=== PATIENT | female | born 1990 | race Caucasian/White ===

== ENCOUNTER 2016-06-12 20:57 | Emergency (ER) | payer OTHER ==
[~2016-06-12] VITALS: Ht 162.5 cm; Wt 97.1 kg
[~2016-06-12 20:57] MED LIST: AMOXICILLIN500 M2 PO; CIPRO500 MG PO; CLINDAMYCIN150 MG PO; FLONASE ALLERG9.9 ML NS; HYDROCODONE BIT1 T11 PO; KEFLEX500 MG PO; MACRODANTIN100 M1 PO; MOTRIN800 MG PO; NAPROSYN500 MG PO; NKHM; NORCO 325 MG-51 TAB PO; PEN-VEE K500 MG PO; PENICILLIN VK500 MG PO; SILVADENE1% TP; TOPCARE OMEPRAZ20 MG PO; VENTOLIN H0.09 MG/AC INH
[2016-06-12 21:09] VITALS: BP 150/98
[2016-06-12 21:41] LABS: BASO # 0.1 10*3/uL (0.0-0.1); BASO % 0.4 % (0.0-1.0); EOS # 0.3 10*3/uL (0.0-0.4); EOS % 2.4 % (1.0-4.0); HEMATOCRIT 40.5 % (37.0-47.0); HEMOGLOBIN 13.4 g/dl (12.0-16.0); LYMPH # 2.5 10*3/uL (1.3-4.4); LYMPH % 22.3 % (27.0-41.0); MEAN CELL VOLUME 88.4 fl (81.0-99.0); MEAN CORPUSCULAR HGB 29.3 pg (27.0-31.0); MEAN CORPUSCULAR HGB CONC 33.1 g/dl (33.0-37.0); MEAN PLATELET VOLUME 10.8 fl (9.6-12.3); MONO # 0.8 10*3/uL (0.1-1.0); MONO % 7.3 % (3.0-9.0); NEUT # 7.7 10*3/uL (2.3-7.9); NEUT % 67.3 % (47.0-73.0); PLATELET COUNT AUTOMATED 252 10*3/uL (130-400); RED BLOOD COUNT 4.58 10*6/uL (4.10-5.10); RED CELL DISTRI WIDTH 12.5 % (0-14.5); WHITE BLOOD COUNT 11.4 10*3/uL (4.8-10.8)
[2016-06-12 21:58] LABS: BILIRUBIN NEGATIVE (NEGATIVE); BLOOD NEGATIVE (NEGATIVE); CLARITY SL CLOUDY (CLEAR); COLOR YELLOW (YELLOW); GLUCOSE NEGATIVE (NEGATIVE); KETONE NEGATIVE (NEGATIVE); LEUKO ESTERASE NEGATIVE (NEGATIVE); NITRITE NEGATIVE (NEGATIVE); PROTEIN NEGATIVE (NEGATIVE); UROBILINOGEN 0.2 E.U./dl (0.2-1.0)
[2016-06-12 21:59] LABS: ALBUMIN 3.3 gm/dl (3.1-4.5); ALKALINE PHOSPHATASE 95 U/L (45-117); BILIRUBIN, TOTAL 0.2 mg/dl (0.2-1.0); BUN 5 mg/dl (7-24); C-REACTIVE PROTEIN 4.07 MG/DL (0-0.3); CARBON DIOXIDE 29 mmol/L (21-32); CHLORIDE 106 mmol/L (98-107); EST GLOM FILT AFRICAN AMERICAN > 60 ml/min; GLUCOSE 96 mg/dL (65-99); POTASSIUM 4.1 mmol/L (3.5-5.1); SGOT/AST 17 IU/L (3-35); SGPT/ALT 18 U/L (12-78); SODIUM 142 mmol/L (136-145); TOTAL PROTEIN 7.9 gm/dL (6.4-8.2)
[2016-06-12 22:01] LABS: B-hCG (QUALITATIVE) NEGATIVE (NEGATIVE)
[2016-06-12 22:05] LABS: BACTERIA 1+; RBC 0-2 rbc/hpf (0-2); URINE REFLEX COMMENT NO (NO); WBC 0-2 wbc/hpf (0-5)
[2016-06-13] MEDS ORDERED: ZOFRAN ODT4 MG SL (01:19)
[2016-06-13] MEDS ORDERED: BENTYL10 MG PO (01:19)
[2016-06-13] MEDS ORDERED: HYDROCODONE BIT1 T11 PO (01:19)
== END 2016-06-13 01:41 | disposition home or self-care (01) ==
LOC: ED 20:57
PROVIDERS: Emergency Medicine Emergency Medical Services
DX: K80.80 Other cholelithiasis without obstruction (principal); K80.50 Calculus of bile duct without cholangitis or cholecystitis without obstruction; K21.9 Gastro-esophageal reflux disease without esophagitis; Z88.5 Allergy status to narcotic agent; Z79.899 Other long term (current) drug therapy

== ENCOUNTER → 2016-06-21 | Day surgery (SDC) | payer OTHER ==
[2016-06-19 10:58] LABS: BILIRUBIN NEGATIVE (NEGATIVE); BLOOD NEGATIVE (NEGATIVE); CLARITY SL CLOUDY (CLEAR); COLOR YELLOW (YELLOW); GLUCOSE NEGATIVE (NEGATIVE); KETONE NEGATIVE (NEGATIVE); LEUKO ESTERASE 1+ (NEGATIVE); NITRITE NEGATIVE (NEGATIVE); PH 5.5 (5.0-9.0); PROTEIN NEGATIVE (NEGATIVE); UROBILINOGEN 0.2 E.U./dl (0.2-1.0)
[2016-06-19 11:01] LABS: BASO # 0.1 10*3/uL (0.0-0.1); BASO % 0.6 % (0.0-1.0); EOS # 0.2 10*3/uL (0.0-0.4); EOS % 2.3 % (1.0-4.0); HEMATOCRIT 43.7 % (37.0-47.0); HEMOGLOBIN 14.5 g/dl (12.0-16.0); LYMPH # 2.3 10*3/uL (1.3-4.4); LYMPH % 21.5 % (27.0-41.0); MEAN CELL VOLUME 88.5 fl (81.0-99.0); MEAN CORPUSCULAR HGB 29.4 pg (27.0-31.0); MEAN CORPUSCULAR HGB CONC 33.2 g/dl (33.0-37.0); MEAN PLATELET VOLUME 10.8 fl (9.6-12.3); MONO # 0.6 10*3/uL (0.1-1.0); MONO % 5.5 % (3.0-9.0); NEUT # 7.3 10*3/uL (2.3-7.9); NEUT % 69.8 % (47.0-73.0); PLATELET COUNT AUTOMATED 280 10*3/uL (130-400); RED BLOOD COUNT 4.94 10*6/uL (4.10-5.10); RED CELL DISTRI WIDTH 12.7 % (0-14.5); WHITE BLOOD COUNT 10.5 10*3/uL (4.8-10.8)
[2016-06-19 11:03] LABS: BACTERIA TRACE
[2016-06-19 11:30] LABS: ALBUMIN 3.5 gm/dl (3.1-4.5); ALKALINE PHOSPHATASE 92 U/L (45-117); BILIRUBIN, DIRECT < 0.1 mg/dL (0.0-0.2); BILIRUBIN, TOTAL 0.3 mg/dl (0.2-1.0); BUN 6 mg/dl (7-24); CARBON DIOXIDE 24 mmol/L (21-32); CHLORIDE 107 mmol/L (98-107); EST GLOM FILT AFRICAN AMERICAN > 60 ml/min; GLUCOSE 89 mg/dL (65-99); POTASSIUM 4.3 mmol/L (3.5-5.1); SGOT/AST 19 IU/L (3-35); SGPT/ALT 23 U/L (12-78); SODIUM 141 mmol/L (136-145); TOTAL PROTEIN 8.5 gm/dL (6.4-8.2)
[2016-06-19 11:35] LABS: PROTHROMBIN TIME 10.5 SECONDS (9.0-12.4)
[~2016-06-21] VITALS: Ht 162.5 cm; Wt 97.5 kg
[2016-06-21] VITALS (8 sets, daily range): BP systolic 117–146; BP diastolic 72–89
[~2016-06-21] MED LIST changes: +BENTYL10 MG PO; +PERCOCET 325 MG1 TA2 PO; +ZOFRAN ODT4 MG SL
--- NOTE | ~2016-06-21 | O ---
[place], [place] OPERATIVE NOTE NAME: ANTIONE LIZARRAGA [facility] #: [id number] UNIT #: [id number] ROOM: DOCTOR: KEL AC MD BIRTHDATE: [birth year] DOS: 06/21/2016 PREOPERATIVE DIAGNOSIS: Gallstones. POSTOPERATIVE DIAGNOSIS: Chronic calculous cholecystitis. PROCEDURE: Laparoscopic cholecystectomy. SURGEON: Kel Ac MD SENIOR JAVA UI DEVELOPER: PGY1. ANESTHESIA: GET. INDICATIONS: This is a 26-year-old lady with a history of right upper quadrant pain and an ultrasound that showed sludge and gallstones. It was decided to take the patient to the operating room for a laparoscopic possible open cholecystectomy. The procedure and its complications explained to the patient in detail preoperatively. Complications that were discussed included, but were not limited to, bleeding, infection, hematoma/seroma/abscess formation, prolonged postoperative pain, damage to underlying vital structures, inadvertent injury to the common bile duct, biloma formation and incisional hernia formation. She agreed to proceed. DESCRIPTION OF PROCEDURE: After identifying the patient, the patient was brought to the operating suite and laid in the supine position. After induction of general anesthesia, the parts were painted and draped in the usual sterile fashion. A time-out procedure was called. An incision was made below the umbilicus in a transverse fashion. The skin and the subcutaneous tissue were incised. The fascia was incised vertically and 2 stay sutures with 0 Vicryl were taken on either side. The peritoneum was opened and a Charla port was introduced and a pneumoperitoneum was created. Under direct vision, an epigastric incision of 10 mm and two 5 mm incisions were made in the right upper quadrant and appropriate size ports were introduced. The gallbladder was retracted superiorly and laterally. Adhesions between the omentum and the gallbladder were taken down with the help of blunt dissection. Thereafter, the cystic duct and the cystic artery were each identified until the critical view of safety was obtained and the triangle of Calot was clearly delineated. Thereafter, the cystic duct and the cystic artery were each clipped 3 times and cut between the first and the second clip. The gallbladder was then removed from the bed of the gallbladder and placed in an EndoCatch bag and sent for histopathological diagnosis. Thereafter, the liver bed was inspected for bleeding, there was no bleeding seen. At this point, the right upper quadrant and the epigastric ports were removed and there was no bleeding seen. The umbilical port was also removed. The stay sutures were tied together and an additional stitch was taken to close the fascia. Thereafter, the edges of the skin were infiltrated with 1% plain lidocaine and then were approximated with the help of 4-0 Vicryl in a subcuticular running fashion. Dressings were given to all the 4 incisions. The patient tolerated the procedure well. She was extubated uneventfully and taken to the recovery room in stable fashion. There [place], [place] OPERATIVE NOTE NAME: ANTIONE LZIARRAGA UNIT #: [id number] ROOM: DOCTOR: KEL AC MD BIRTHDATE: [address] Kel Ac, the attending surgeon, was present throughout the operating case. Kel Ac MD CM:OPRECORD:OPERATIVE NOTE [id number] KEL AC MD 06/21/16 1128 interface
== END | disposition home or self-care (01) ==
LOC: SDC 06-19 09:30
PROVIDERS: Surgery
DX: K80.12 Calculus of gallbladder with acute and chronic cholecystitis without obstruction (principal); K21.9 Gastro-esophageal reflux disease without esophagitis; F17.210 Nicotine dependence, cigarettes, uncomplicated; Z82.49 Family history of ischemic heart disease and other diseases of the circulatory system; Z83.3 Family history of diabetes mellitus; Z80.0 Family history of malignant neoplasm of digestive organs

== ENCOUNTER 2016-11-06 19:52 | Emergency (ER) | payer OTHER ==
[~2016-11-06] VITALS: Ht 167.6 cm; Wt 70.3 kg
[2016-11-06 20:35] VITALS: BP 142/90
[2016-11-06] MEDS ORDERED: ZITHROMAX250 MG PO (21:39)
== END 2016-11-06 22:14 | disposition home or self-care (01) ==
LOC: ED 19:52
DX: J06.9 Acute upper respiratory infection, unspecified (principal); B97.89 Other viral agents as the cause of diseases classified elsewhere; K21.9 Gastro-esophageal reflux disease without esophagitis; Z88.6 Allergy status to analgesic agent

== ENCOUNTER 2017-03-22 11:18 | Emergency (ER) | payer OTHER ==
[~2017-03-22] VITALS: Ht 162.5 cm; Wt 91.2 kg
[~2017-03-22 11:18] MED LIST changes: +ZITHROMAX250 MG PO
[2017-03-22 11:23] VITALS: BP 108/68
== END 2017-03-22 11:57 | disposition home or self-care (01) ==
LOC: ED 11:18
DX: S60.442A External constriction of right middle finger, initial encounter (principal); K21.9 Gastro-esophageal reflux disease without esophagitis; F17.200 Nicotine dependence, unspecified, uncomplicated; Z90.49 Acquired absence of other specified parts of digestive tract; Z79.899 Other long term (current) drug therapy; Z88.5 Allergy status to narcotic agent; X58.XXXA Exposure to other specified factors, initial encounter; Y93.89 Activity, other specified; Y92.89 Other specified places as the place of occurrence of the external cause; Y99.9 Unspecified external cause status

== ENCOUNTER 2018-01-14 14:56 | Emergency (ER) | payer OTHER ==
[~2018-01-14] VITALS: Ht 162.5 cm; Wt 93.4 kg
[2018-01-14 14:58] VITALS: BP 129/81
[2018-01-14] MEDS ORDERED: CEPHALEXIN500 M1 PO (15:48)
== END 2018-01-14 15:59 | disposition home or self-care (01) ==
LOC: ED 14:56
DX: T24.212A Burn of second degree of left thigh, initial encounter (principal); Z90.49 Acquired absence of other specified parts of digestive tract; Z88.5 Allergy status to narcotic agent; Z79.2 Long term (current) use of antibiotics; X19.XXXA Contact with other heat and hot substances, initial encounter; Y93.89 Activity, other specified; Y92.69 Other specified industrial and construction area as the place of occurrence of the external cause; Y99.8 Other external cause status

== ENCOUNTER → 2019-09-24 | Outpatient (CLI) | payer OTHER ==
[~2019-09-24] MED LIST changes: +CEPHALEXIN500 M1 PO
== END | disposition home or self-care (01) ==
LOC: US 15:51
DX: Z34.91 Encounter for supervision of normal pregnancy, unspecified, first trimester (principal); Z3A.09 9 weeks gestation of pregnancy

== ENCOUNTER → 2020-04-15 | Outpatient (CLI) | payer OTHER | END | disposition home or self-care (01) | LOC: COVID19 15:05 | PROVIDERS: ATTEND Obstetrics & Gynecology | DX: Z34.93 Encounter for supervision of normal pregnancy, unspecified, third trimester (principal); Z20.822 Contact with and (suspected) exposure to COVID-19; Z3A.38 38 weeks gestation of pregnancy ==

== ENCOUNTER → 2022-01-29 | Day surgery (SDC) | payer OTHER ==
[~2022-01-29] VITALS: Ht 162.5 cm; Wt 106.6 kg
[2022-01-29] VITALS (8 sets, daily range): BP systolic 115–135; BP diastolic 64–79
[~2022-01-29] MED LIST changes: +Percocet 325 MG1 TAB PO
== END | disposition home or self-care (01) ==
LOC: SDC 01-26 14:00
PROVIDERS: ATTEND Obstetrics & Gynecology
DX: Z30.2 Encounter for sterilization (principal); K21.9 Gastro-esophageal reflux disease without esophagitis; F17.210 Nicotine dependence, cigarettes, uncomplicated; Z90.49 Acquired absence of other specified parts of digestive tract

== ENCOUNTER 2025-01-28 15:16 | Emergency (ER) | payer OTHER ==
[~2025-01-28] VITALS: Wt 102.1 kg
[2025-01-28 16:07] VITALS: BP 120/79
[2025-01-28 17:05] LABS: BILIRUBIN Negative (Negative); BLOOD Trace-Lysed (Negative); CLARITY Cloudy (Clear); COLOR Yellow (Yellow); KETONE Negative (Negative); LEUKO ESTERASE 2+ (Negative); NITRITE Positive (Negative); PH 5.5 (4.5-8.0); SPECIFIC GRAVITY 1.020 (1.001-1.030); UROBILINOGEN 1.0 E.U./dl (0.0-1.0)
[2025-01-28 17:18] LABS: BACTERIA 3+; EPITHELIAL CELLS 31-40; FINE GRANULAR CAST 0-2; MUCOUS 1+; WBC TNTC wbc/hpf (0-5)
[2025-01-28] MEDS ORDERED: SODIUM CHLORIDE 0.9% 1,000 ML IV ONE (17:30)
[2025-01-28 18:13] LABS: BASO # 0.1 10*3/uL (0.0-0.1); BASO % 0.6 % (0.0-1.0); EOS # 0.1 10*3/uL (0.0-0.4); EOS % 0.5 % (1.0-4.0); MEAN CELL VOLUME 91.1 fl (81.0-99.0); MEAN CORPUSCULAR HGB 29.6 pg (27.0-31.0); MEAN PLATELET VOLUME 11.4 fl (9.6-12.3); MONO # 1.1 10*3/uL (0.1-1.0); MONO % 7.7 % (3.0-9.0); NEUT # 11.3 10*3/uL (2.3-7.9); NEUT % 77.9 % (47.0-73.0); NUCLEATED RED BLOOD CELL 0.0 % (0.0-0.0); NUCLEATED RED BLOOD CELL 0.0 10*3/uL (0.0-0.0); PLATELET COUNT AUTOMATED 238 10*3/uL (130-400); RED CELL DISTRI WIDTH 12.7 % (0-14.5)
[2025-01-28] MEDS ORDERED: Ondansetron Hydrochloride 4 MG TAB PO ONE (18:20)
[2025-01-28] MEDS ORDERED: Acetaminophen/Hydrocodone 5 MG/325 MG TABLET PO ONE (18:25)
[2025-01-28 18:35] LABS: BUN 9 mg/dl (9-23)
[2025-01-28] MEDS ORDERED: AMOX-CLAV 875-1 EACH PO (19:21)
[2025-01-28] MEDS ORDERED: Ondansetron4 MG PO (19:21)
[2025-01-28] MEDS ORDERED: Water, Sterile 10 ML VIAL ONE (19:55)
== END 2025-01-28 19:37 | disposition home or self-care (01) ==
LOC: ED 15:16
PROVIDERS: Nurse Practitioner Family
DX: N39.0 Urinary tract infection, site not specified (principal); K21.9 Gastro-esophageal reflux disease without esophagitis; Z88.5 Allergy status to narcotic agent; Z90.49 Acquired absence of other specified parts of digestive tract